=== PATIENT | female | born 1980 | race Hispanic/Latino ===

== ENCOUNTER 2017-03-25 18:16 | Emergency (ER) | payer MEDICAID ==
[2017-03-25 18:16] VITALS: BMI 28.3
[2017-03-25 18:23] VITALS: BP 133/78; PULSE 75; RESP 18; TEMP 97.4; O2SAT 96
[2017-03-25] MEDS ORDERED: Naproxen 550 mg Tab PO STA (18:34)
--- NOTE | 2017-03-25 18:40 | C.PDOC ---
History Of Present Illness Patient is a 36 year old female who presents to the ER with a complaint of right foot pain that began today while she was walking. PT notes similar episodes in the past which have resolved on their own. Patient denies trauma, or change in sensation. Time Seen by Provider: 03/25/17 18:28 Chief Complaint (Nursing): Lower Extremity Problem/Injury History Per: Patient History/Exam Limitations: no limitations Onset/Duration Of Symptoms: Hrs Current Symptoms Are (Timing): Still Present Recent travel outside of the [place]: No Past Medical History Reviewed: Historical Data, Nursing Documentation, Vital Signs Vital Signs: Last Vital Signs Temp 97.4 F L 03/25/17 18:21 Pulse 75 03/25/17 18:21 Resp 18 03/25/17 18:21 BP 133/78 03/25/17 18:21 Pulse Ox 96 03/25/17 20:13 - Medical History PMH: Anxiety, Back Problems, Depression - [facility] Procedures [facility] NEC (11/13/14) EPISIOTOMY (11/13/14) 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) Family History: States: Unknown Family Hx - Social History Hx Tobacco Use: Yes Hx Alcohol Use: Yes Hx Substance Use: No (denies 03/25) - Immunization History Hx Tetanus Toxoid Vaccination: No Hx Influenza Vaccination: No Hx Pneumococcal Vaccination: No Review Of Systems Musculoskeletal: Positive for: Foot Pain (Right) Neurological: Negative for: Weakness, Numbness Physical Exam - Physical Exam Appears: Well, Non-toxic, No Acute Distress Skin: Normal Color, Warm, Dry Head: Atraumatic, Normacephalic Eye(s): bilateral: Normal Inspection, EOMI Nose: Normal Oral Mucosa: Moist Chest: Symmetrical, No Tenderness Respiratory: No Accessory Muscle Use, Other (speaking in complete sentences) Extremity: Normal ROM, Tenderness (Point tenderness to mid plantar aspect of right foot), No Calf Tenderness, Capillary Refill (<2 sec), Swelling (Mid plantar aspect of right foot) Extremity: Bilateral: Atraumatic, Normal Color And Temperature, Normal ROM Pulses: Left Dorsalis Pedis: Normal, Right Dorsalis Pedis: Normal Neurological/Psych: Oriented x3, Normal Speech, Normal Motor, Normal Sensation, Other (No focal deficits) ED Course And Treatment O2 Sat by Pulse Oximetry: 96 (Room air) Pulse Ox Interpretation: Normal Progress Note: Anaprox administered. Patient refused x-ray, was placed in an rebekah wrap by CP and reviewed by me. On reevaluation, patient feels better, will discharge home and advised to follow up with ortho in 1-2 days. Disposition - Disposition Disposition: HOME/ ROUTINE Disposition Time: 18:38 Condition: STABLE Additional Instructions: Rest, ice and elevate the area. Put arch supports in your shoes. Follow up with podiatry in 1-2 days. Prescriptions: Naproxen [Naprosyn] 1 tab PO BID PRN #20 tab PRN Reason: Pain Instructions: Foot Sprain (ED) - Clinical Impression Clinical Impression: Foot sprain - Scribe Statement The provider has reviewed the documentation as recorded by the Scribgagan Arriaza All medical record entries made by the Scribe were at my direction and personally dictated by me. I have reviewed the chart and agree that the record accurately reflects my personal performance of the history, physical exam, medical decision making, and the department course for this patient. I have also personally directed, reviewed, and agree with the discharge instructions and disposition.
[2017-03-25] MEDS ORDERED: Naproxen 550 mg Tab PO ONE (18:42)
== END 2017-03-25 19:00 | disposition home or self-care (01) ==
LOC: C.ER 18:16
DX: S93.601A Unspecified sprain of right foot, initial encounter (principal); X58.XXXA Exposure to other specified factors, initial encounter; Y93.01 Activity, walking, marching and hiking; Y92.410 Unspecified street and highway as the place of occurrence of the external cause